=== PATIENT | female | born 1960 | race Caucasian/White ===

== ENCOUNTER 2018-06-29 12:46 | Emergency (ER) | payer OTHER ==
[~2018-06-29] VITALS: Ht 165.1 cm; Wt 68.0 kg
[~2018-06-29 12:46] MED LIST: GOOD SENSE ASPI81 M3 PO; KEFLEX500 M1 PO; LAC PO; LIPI10 PO; SYNTHROID0.075 MG PO
[2018-06-29 13:10] VITALS: Ht 165.1 cm; Wt 68.0 kg
[2018-06-29 14:19] VITALS: BP 118/76
== END 2018-06-29 14:19 | disposition home or self-care (01) ==
LOC: ED 12:46
DX: J06.9 Acute upper respiratory infection, unspecified (principal); Z88.0 Allergy status to penicillin
CPT/HCPCS: J1885; Q0092